=== PATIENT | female | born 1975 | race Caucasian/White ===

== ENCOUNTER 2025-01-16 07:09 | Outpatient (OUT) | payer OTHER, SELFPAY ==
--- NOTE | 2025-01-16 07:12 | CA_ITS ---
Patient Name: MANUELITO VILA MR#: [id number] : 1975 Exam Date: 01/16/2025 Ordering Doctor: JH CASTANEDA CNP ECHOCARDIOGRAM REPORT PROCEDURE: CA ECHO DOPPLER COMPLETE INDICATIONS: V-tach, ventricular fibrillation COMPARISON: None. DESCRIPTION: COMPLETE ECHOCARDIOGRAM Real-time transthoracic echocardiography with 2D, M-mode, spectral and color flow Doppler performed. QUALITY: Technical quality was good. LEFT VENTRICLE: Normal chamber size. Normal left ventricular wall thickness. Global left ventricular systolic function is normal. Global longitudinal strain is -18.7%. LV EF: Calculated left ventricular ejection fraction is 58%. DIASTOLIC: Diastolic function is normal. ATRIAL SEPTUM: Aneurysmal atrial septum. LEFT ATRIUM: Normal chamber size. RIGHT ATRIUM: Normal chamber size. RIGHT VENTRICLE: Normal chamber size. Normal right ventricular systolic function. Pacer wire present. TRICUSPID VALVE: Normal mobility and thickness. No stenosis with mild regurgitation. No evidence of pulmonary hypertension. RVSP 30mmHg MITRAL VALVE: Normal mobility and thickness. No evidence of mitral valve stenosis. There is no mitral annular calcification. No mitral regurgitation. AORTIC VALVE: Normal trileaflet appearance. No visible sclerosis. Normal leaflet mobility. No evidence of aortic valve stenosis. No aortic regurgitation. AORTIC ROOT: Normal diameter and appearance, measuring 3.0 cm. The ascending aorta is normal in size, measuring 3.2 cm. PULMONIC VALVE: Normal thickness and mobility. No stenosis. No regurgitation. PERICARDIUM: No evidence of pericardial effusion. IVC: Collapses with inspirations. Normal size. PLEURA: CONCLUSION: 1. The left ventricular is normal in size and exhibits normal systolic function. LVEF is estimated at 55 to 60%. Global longitudinal strain is within normal limits. 2. Normal right ventricular size and systolic function. 3. No significant valvular dysfunction. 4. Normal diastolic function. 5. Normal right-sided pressures. 6. No pericardial effusion. Adult Echocardiography Procedure Report Left Ventricle LVEDD (3.7 - 5.6 cm): 4.40 cm LVESD (2.2 - 4.0 cm): 2.97 cm LVIVS thickness (0.6 - 1.2 cm): 0.72 cm LVPW thickness (0.5 - 1.0 cm): 0.88 cm e': 0.07 m/s E - e': 5.96 LVOT Max Gradient: 3.76 mm[Hg] LVOT Area (cm2): 0.97 m/s Peak Velocity (LVOT): 0.97 m/s Mean Velocity (LVOT): 0.63 m/s LVOT Diameter 1.93 cm Left Atrium LA Volume Index (2D A2C): 23.29 ml/m2 Left Atrium Systolic Dimension: 2.98 cm Mitral Valve MV E to A Ratio: 0.67 Mitral Valve A-Wave Peak Velocity: 0.66 m/s Mitral Valve E-Wave Peak Velocity: 0.44 m/s Right Ventricle RV Internal Diastolic Dimension: 3.30 cm Aorta AO Root Diam: 3.03 cm Ascending Ao Diam: 3.25 cm Aortic Valve AoV Area (Peak Roger): 2.24 cm2, 2.20 cm2 AoV Area (VTI): 2.11 cm2, 2.08 cm2 Peak Velocity(Antegrade Flow): 1.28 m/s, 1.24 m/s Peak Gradient(Antegrade Flow): 6.56 mm[Hg], 6.16 mm[Hg] Mean Velocity(Antegrade Flow): 0.94 m/s, 0.94 m/s Mean Gradient(Antegrade Flow): 3.97 mm[Hg], 3.85 mm[Hg] Velocity Time Integral: 25.51 cm, 24.82 cm Tricuspid Valve Peak Velocity (Regurgitant Flow): 2.28 m/s, 2.35 m/s, 2.58 m/s Pulmonic Valve Mean Gradient: 2.39 mm[Hg], 2.16 mm[Hg], 2.25 mm[Hg] Mean Velocity: 0.73 m/s, 0.68 m/s, 0.71 m/s Peak Velocity: 0.98 m/s Peak Gradient: 4.19 mm[Hg], 3.87 mm[Hg], 3.57 mm[Hg] Right Atrium Right Atrium Systolic Pressure: 15.28 ml, 15.28 ml Dictated by: Remi Elder M.D. on 01/16/2025 at 10:38 Approved by: Remi Elder M.D. on 01/16/2025 at 10:43
[2025-01-16 09:14] LABS: Anion Gap 17.3; BUN Creatinine Ratio 17.5; Calcium 9.3 mg/dL (8.5-10.1); Carbon Dioxide 26.6 mmol/L (21.0-32.0); Chloride 97 mmol/L (98-107); Estimated GFR (African America >60 (>=60 mL/min/1.73m^2); Estimated GFR (Non-African Ame >60 (>=60 mL/min/1.73m^2); Glucose 73 mg/dL (74-106); Magnesium 1.7 mg/dL (1.8-2.4); Potassium 3.9 mmol/L (3.5-5.1); Sodium 137 mmol/L (136-145); TSH W/ REFLEX FT4 4.443 uIU/mL (0.358-3.740)
[2025-01-16 10:16] LABS: Free T4 1.75 ng/dL (0.76-1.46)
== END 2025-01-16 07:10 | disposition home or self-care (01) ==
LOC: CARD 07:10
PROVIDERS: Visit Provider Nurse Practitioner Family
DX: I47.20 Ventricular tachycardia, unspecified (principal); I49.01 Ventricular fibrillation
CPT/HCPCS: 36415; 80048; 83735; 84439; 84443; 93306